=== PATIENT | male | born 1930 | race Caucasian/White ===

== ENCOUNTER → 2017-07-04 | Outpatient (CLI) | payer MEDICARE, OTHER ==
[~2017-07-04] MED LIST: ASPI81CH PO; GLIP2.5ER PO; METF500C PO; PROP10 PO; SIMV5 PO; WARF10 PO; WARF7.5 PO; Zithromax250 MG PO
== END | disposition home or self-care (01) ==
LOC: LAB 08:44
DX: R97.20 Elevated prostate specific antigen [PSA] (principal); N42.31 Prostatic intraepithelial neoplasia
CPT/HCPCS: 88305; 88341; 88342

== ENCOUNTER 2021-09-03 05:48 | Day surgery (SDC) | payer MEDICARE, OTHER ==
[~2021-09-03] VITALS: Ht 172.7 cm; Wt 74.0 kg
[~2021-09-03 05:48] MED LIST changes: +AMLO5 PO; +CALCIUM CITRAT200 MG PO; +ELIQUIS2.5 MG PO; +LOSA50 PO; +METF500 PO; +MULVITA PO; +PRESERVISION A1 EAC1 PO; +Saw Palmetto160 MG PO; +TAMS.4ER PO; +TYLENOL PM EXS1 EACH PO; +ZOCOR20 MG PO
--- NOTE | 2021-09-03 10:37 | NUR ---
PT AND S/O VERBALIZES UNDERSTANDING WRITTEN AND VERBAL INSTRUCTIONS. VSS. R CHEST WALL INCISION STABLE. NO BLEEDING NOTED. ANCEF 1 GRAM IVF FINISHED INFUSING.
--- NOTE | 2021-09-03 10:44 | NUR ---
PT IV DC'D. CATH INTACT. PRESSURE DSG IN PLACE. NO BLEEDING NOTED. VSS. NADN. PT DC TO HOME VIA S/O BY PAULA
== END 2021-09-03 11:00 | disposition home or self-care (01) ==
LOC: MHTC 05:48
DX: Z45.010 Encounter for checking and testing of cardiac pacemaker pulse generator [battery] (principal); E11.9 Type 2 diabetes mellitus without complications; J30.5 Allergic rhinitis due to food; I10 Essential (primary) hypertension; E78.5 Hyperlipidemia, unspecified; I49.5 Sick sinus syndrome
CPT/HCPCS: 33210; 33227; 99152; 99153; C1786; C1894; J0690; J1580; J1644; J2250; J3010; J7030; J7040